=== PATIENT | female | born 1995 ===

== ENCOUNTER 2024-07-31 12:01 | Day surgery (SDC) | payer OTHER ==
[~2024-07-31] VITALS: Ht 167.6 cm; Wt 89.1 kg
[~2024-07-31 12:01] MED LIST: ALBU90OI; CHOLP PO; FAMO20 PO; Lactated Ringer's 1,000 ML IV ONE; ONDA4 PO; propofoL 50 ML IV ONE
[2024-07-31] MEDS ORDERED: [UNRECOGNIZED DRUG - OTHER] (13:20)
[2024-07-31] MEDS ORDERED: SERT50 (13:20)
[2024-07-31] MEDS ORDERED: Lactated Ringer's 1,000 ML IV ONE ×4 (13:47→15:42)
[2024-07-31] MEDS ORDERED: Midazolam HCl 1MG / ML 2ML Vial ONE (14:11)
[2024-07-31] MEDS ORDERED: propofoL 50 ML IV ONE ×2 (14:50→15:12)
--- NOTE | 2024-07-31 15:17 | NUR ---
07/31/[address] WAS CALLED IN TO ASSIST PT DOES NOT SEDATE EASILY. WHEN ATTEMPTED TO PASS SCOPE, PT WAS ASLEEP, WOULD THRASH ABOUT AND STAFF HAD TO HELP HOLD HER ARMS TO KEEP HER FROM PULLING IV OUT. CARE IS UNDER DR HUGHES AT THIS TIME.
[2024-07-31] MEDS ORDERED: Ipratropium/Albuterol SulF 2.5-0.5MG/3 ML Amp ONE (15:32)
[2024-07-31] MEDS ORDERED: Ondansetron HCl 2 MG / ML 2ML Vial ONE (16:00)
--- NOTE | 2024-07-31 17:34 | NUR ---
07/31/24 7834 Lalitha Townsend S LATE ENTRY PT. ALSO IN [place] DID C/O MID CHEST PAIN AFTER DRINKING APPLE JUICE "LIKE WHEN I HAVE AN ASTHMA ATTACK BUT GOING AWAY." SHE VERBALIZED FEELING LIKE SPASMING AFTER DRINKING COLD APPLE JUICE.
[2024-07-31] MEDS ORDERED: SuccINYLCHOLINE Chloride 100 MG/5 ML 5MLSYR IV ONE (21:00)
== END 2024-07-31 16:40 | disposition home or self-care (01) ==
LOC: ORSCSDS 12:01
PROVIDERS: Internal Medicine Gastroenterology
PROC: 0DBE8ZX Excision of Large Intestine, Via Natural or Artificial Opening Endoscopic, Diagnostic (ICD-10-PCS; principal; 2024-07-31 13:15)
PROC: 0DBN8ZX Excision of Sigmoid Colon, Via Natural or Artificial Opening Endoscopic, Diagnostic (ICD-10-PCS; principal; 2024-07-31 13:15)
PROC: 0DB98ZX Excision of Duodenum, Via Natural or Artificial Opening Endoscopic, Diagnostic (ICD-10-PCS; principal; 2024-07-31 13:15)
PROC: 0DB78ZX Excision of Stomach, Pylorus, Via Natural or Artificial Opening Endoscopic, Diagnostic (ICD-10-PCS; principal; 2024-07-31 13:15)
DX: R19.7 Diarrhea, unspecified (principal); R11.2 Nausea with vomiting, unspecified; R10.13 Epigastric pain; D12.5 Benign neoplasm of sigmoid colon; K63.5 Polyp of colon; K21.9 Gastro-esophageal reflux disease without esophagitis; K44.9 Diaphragmatic hernia without obstruction or gangrene; J45.909 Unspecified asthma, uncomplicated; F41.9 Anxiety disorder, unspecified; Z79.899 Other long term (current) drug therapy
CPT/HCPCS: 88305; 88342; J0330; J2250; J2405; J2704; J7120